=== PATIENT | male | born 1990 | race Caucasian/White ===

== ENCOUNTER 2022-09-02 21:13 | Emergency (ER) | payer OTHER, SELFPAY ==
--- NOTE | ~2022-09-02 | CT_ITS ---
EXAMINATION: CT brain wo con DATE: 09/02/2022 22:30 INDICATION: Altered mental status . TECHNIQUE: Computed tomography (CT) of the head was performed without intravenous contrast. The mA wa s adjusted according to patient size. Iterative reconstruction technique was employed. The dose-lengt h product was 605.33 mGy-cm. COMPARISON: None. FINDINGS: No acute intracranial hemorrhage or extra-axial fluid collection. No hydrocephalus, mass, or herniation. No acute ischemic infarct. Unremarkable dural venous sinus attenuation. No acute osseous abnormality. The aerated spaces are clear. IMPRESSION: No acute intracranial process. Reviewed, dictated and finalized at location K.
[2022-09-02 21:25] VITALS: BP 186/106; PULSE 114; RESP 14; O2SAT 95
[2022-09-02] MEDS: LORazepam INJ (*CRX) 2 MG/ML VIAL IM (21:42)
[2022-09-02] MEDS: HALOPERIDOL LACTATE 5 MG/ML VIAL IM (21:43)
--- NOTE | 2022-09-02 21:52 | PC.NURSE ---
patient arrived to er triage with his girlfriend. patient refused to enter building, instead sat in floyer and was yelling and singing loudly. patient threw his water bottle against the wall and yelled This is how I will get my power . patient dianne got into a wheelchair and was using it to wheel himself into the windows. patient continued to yell and maine his wheelchair into the windows until approached by several staff members and security at which time he stated I will be compliant so you cant send me into space
--- NOTE | 2022-09-02 21:58 | ED.PSYCH ---
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 Patient states he has felt disoriented and agitated for the past several days. He believes he fell and struck his head 2 days ago. He is not sure if he lost consciousness. He denied hallucinations to me, though admitted auditory and visual hallucinations to nursing staff. He denies suicidal or homicidal ideations to both me and nursing staff Related Data Allergies Allergy/AdvReac Type Severity Reaction Status Date / Time No Known Allergies Allergy Verified 09/02/22 21:33 Review of Systems Review of Systems: CONSTITUTIONAL: Denies fever, chills, or sweats. CARDIOVASCULAR: Denies chest pain, palpitations, or edema. RESPIRATORY: Denies cough or dyspnea. GASTROINTESTINAL: Denies abdominal pain, nausea, vomiting, or diarrhea. GENITOURINARY: Denies dysuria or hematuria. SKIN: Denies rash or itching. MUSCULOSKELETAL: Denies back pain, joint pain, or myalgia. NEUROLOGIC: Headache denies numbness, dizziness, or weakness. PSYCHIATRIC: Denies suicidal or homicidal ideations. Complains of auditory and visual hallucinations PMFSH Social History Social History (Updated 09/02/22 @ 22:02 by Filemon Mccray MD) Smoking status: Former smoker Alcohol intake: current Alcohol use details: Last reported drink 3 weeks ago Substance use type: does not use Exam Narrative: GENERAL: Well-developed, well-nourished, appears anxious, rapidly pacing in the room, HEAD: Normocephalic, atraumatic. EYES: PERRLA and EOMI. left eye strabismus ENT: Nares clear, no rhinorrhea or epistaxis. Mucous membranes moist. Oropharynx without tonsillar hypertrophy exudate or other lesions. CHEST: Clear to auscultation. No respiratory distress. No wheezes rales or rhonchi HEART: Tachycardic with regular rhythm. No murmur heard. Normal peripheral pulses. ABDOMEN: Soft, nontender, nondistended, normal active bowel sounds. EXTREMITIES: Normal range of motion. No edema. SKIN: Warm, dry, no rash. NEURO: No focal deficits. Alert and oriented x3. PSYCH: Anxious and manic affect though demonstrates forward and linear thinking Course Course Emergency Course: 23:30 - The patient is medically cleared for psychiatry evaluation. CT head negative for intracranial hemorrhage or skull fracture. White blood cell count elevated to 18, though I suspect this is due due to stress response. 02:30 - The patient was evaluated by crisis counselor Tita. The patient has previously contacted [facility] for psychiatric evaluation and has been accepted. A safety plan was drawn among the patient, his significant other and crisis counselor Tita. The patient in my opinion does not pose a threat to himself or to others. Will discharge. Vital Signs Vital signs: Vital Signs Pulse Rate 114 H 09/02/22 21:25 Respiratory Rate 14 09/02/22 21:25 Blood Pressure 186/106 H 09/02/22 21:25 Pulse Oximetry 95 09/02/22 21:25 Pulse Rate 88 09/03/22 02:45 Respiratory Rate 15 09/03/22 02:45 Blood Pressure 133/90 09/03/22 02:45 Pulse Oximetry 100 09/03/22 02:45 MDM - Psych MDM Narrative Medical decision making narrative: Plan: Labs, imaging, chemical sedation, psychiatric evaluation, reassess Differential Diagnosis Differential diagnosis: Likely acute psychosis, bipolar disorder, acute anxiety and other (Faye, drug/alcohol intoxication, metabolic abnormality, intracranial hemorrhage, skull fracture, other) Lab Data 09/02/22 21:49 09/02/22 21:49 Labs: Lab Results 09/02/22 09/02/22 Range/Units 21:49 22:05 WBC 18.3 H (4.5-10.0) K/mm3 RBC 5.12 (4.6-6
[2022-09-02 22:01] LABS: Basophils Absolute Auto 0.2 K/mm3 (0.0-0.1); Basophils Percent Auto 0.8 % (0.2-1.2); Eosinophils Percent Auto 5.3 % (0-4.4); Hematocrit 46.1 % (42.0-52.0); Hemoglobin 15.5 g/dL (14.0-18.0); Immature Granulocyte Absolute 0.06 K/mm3 (0.00-0.031); Immature Granulocyte Percent A 0.3 % (0-0.5); Lymphocytes Absolute Auto 4.66 K/mm3 (0.9-3.2); Lymphocytes Percent Auto 25.5 % (18.3-44.2); Mean Corpuscular HGB Conc 33.6 g/dl (32-36); Mean Corpuscular Hemoglobin 30.3 pg (26-34); Mean Platelet Volume 11.7 fl (7.4-10.4); Monocytes Absolute Auto 1.4 K/mm3 (0.1-0.6); Monocytes Percent Auto 7.4 % (2.6-8.5); Neutrophils Absolute Auto 11.1 K/mm3 (1.3-6.7); Neutrophils Percent Auto 60.7 % (45.5-73.1); Platelet Count Result 198 k/mm3 (150-375); Red Blood Count 5.12 M/mm3 (4.6-6.20); Red Cell Distribution Width 13.2 % (11.5-14.5); White Blood Count 18.3 K/mm3 (4.5-10.0)
[2022-09-02 22:11] LABS: Acetaminophen < 10 ug/mL (10-30); Ethanol < 10 mg/dL (<10); Salicylate 1.3 mg/dL (2-20)
[2022-09-02 22:13] LABS: Alanine Aminotransferase 53 U/L (6-50); Albumin Level 4.7 g/dL (3.5-5.1); Alkaline Phosphatase 113 U/L (38-126); Anion Gap 8 mmol/L (8-16); Aspartate Amino Transferase 44 U/L (17-59); Blood Urea Nitrogen 14 mg/dL (9-20); Calcium 9.2 mg/dL (8.4-10.2); Carbon Dioxide 26 mmol/L (22-30); Chloride 103 mmol/L (98-107); Estimated Glomerular Filt Rate > 60; Glucose 108 mg/dL (65-110); Potassium 3.6 mmol/L (3.4-5.0); Sodium 137 mmol/L (137-145)
[2022-09-02 22:14] LABS: Appearance Urine Clear (Clear); Bilirubin Urine Negative (Negative); Blood Urine Negative (Negative); Color Urine Yellow (Yellow); Glucose Urine UA Negative (Negative); Ketones Urine Negative (Negative); Leukocyte Esterase Ur Negative LEU/UL (Negative); Nitrate Urine Negative (Negative); Protein Urine Negative (Negative); Specific Grav Ur 1.007 (1.001-1.035); Urobilinogen Urine 0.2 mg/dL (<2.0)
[2022-09-02 22:16] LABS: Add Urine Microscopic? NO
[2022-09-02 22:18] LABS: Magnesium 1.9 mg/dL (1.6-2.3)
[2022-09-02 22:30] LABS: Amphetamine Screen Urine Negative (Negative); Barbiturate Screen Urine Negative (Negative); Benzodiazepines Screen Urine Negative (Negative); Cannabinoid Screen Urine Negative (Negative); Cocaine Screen Urine Negative (Negative); Methadone Screen Urine Negative (Negative); Opiate Screen Urine Negative (Negative); Phencyclidine Screen Urine Negative (Negative)
[2022-09-03 02:45] VITALS: BP 133/90; PULSE 88; RESP 15; O2SAT 100
== END 2022-09-03 02:54 | disposition home or self-care (01) ==
PROVIDERS: Emergency Provider Preventive Medicine Aerospace Medicine
DX: R44.1 Visual hallucinations (principal); R44.0 Auditory hallucinations; Z87.891 Personal history of nicotine dependence
CPT/HCPCS: 36415; 70450; 80053; 80307; 81003; 83735; 84443; 85025; 96372; 99284; J1630; J2060

== ENCOUNTER 2022-09-06 00:47 | Emergency (ER) | payer OTHER, SELFPAY ==
[2022-09-06] VITALS (15 sets, daily range): BP systolic 124–144; BP diastolic 69–94; PULSE 72–80; RESP 10–20; TEMP 36.2; O2SAT 96–100
--- NOTE | ~2022-09-06 | XR_ITS ---
EXAMINATION: XR chest 2V DATE: 09/06/2022 01:38 INDICATION: Chest pain. TECHNIQUE: Frontal and lateral views of the chest were obtained. COMPARISON: None. FINDINGS: The chest demonstrates clear lungs without pneumonia, pleural effusion, or pneumothorax. Th e heart size is normal. IMPRESSION: 1. No acute cardiopulmonary disease. Reviewed, dictated and finalized at location A.
--- NOTE | 2022-09-06 00:51 | ECG_ITS ---
Measurements Intervals [place] Rate: 71 P: 32 [place]: 162 QRS: -11 QRSD: 94 T: -3 QT: 372 QTc: 405 Interpretive Statements SINUS RHYTHM BORDERLINE T WAVE ABNORMALITY- INFERIOR LEADS BORDERLINE ECG NO PREVIOUS ECG AVAILABLE FOR COMPARISON Electronically Signed On 09-06-2022 7:04:35 CDT by Jean Claude Gee D.O.
--- NOTE | 2022-09-06 01:04 | ED.ANXIETY ---
HPI - Anxiety General Chief Complaint: Anxiety Stated Complaint: CP Time Seen by Provider: 09/06/22 00:54 History of Present Illness HPI narrative: 32-year-old male presented the ED for evaluation of short lasting chest pain. Patient states earlier in the evening he had onset of some left-sided chest pressure that lasted just a few seconds to a minute. Patient has no prior history of heart disease. Patient states he was having some anxiety during this. Patient reports he has had a stressful day. Patient states he was here a few days ago and is requesting Haldol and Ativan Related Data Allergies Allergy/AdvReac Type Severity Reaction Status Date / Time No Known Allergies Allergy Verified 09/02/22 21:33 Review of Systems Review of Systems: All systems reviewed & are unremarkable except as noted in HPI and below PMFSH Social History Social History (Updated 09/02/22 @ 22:02 by Filemon Mccray MD) Smoking status: Former smoker Alcohol intake: current Alcohol use details: Last reported drink 3 weeks ago Substance use type: does not use Exam Narrative: APPEARANCE: Well appearing, no pain, no distress, well-nourished. HEAD: normocephalic, atraumatic. EYES: PERRLA/EOMI, conjunctivae clear. NOSE: Normal no drainage NECK: Supple. No adenopathy, no masses. RESPIRATORY: Airway patent, respirations nonlabored. Clear to auscultation bilaterally, no rales, rhonchi, wheezing. CARDIOVASCULAR: Regular rate and rhythm without murmurs rubs or gallops. ABDOMINAL: Soft, nontender, nondistended, normal bowel sounds MUSCULOSKELETAL: Moves all extremities. Strength/ROM intact, No edema, No calf tenderness. NEURO: Alert. Cranial nerves II through XII intact. Grossly intact SKIN: Warm, dry. Normal Color Course Course Emergency Course: 32-year-old male presented to the ED for evaluation of left-sided chest pain that was short lasting. Patient's EKG showed normal sinus rhythm with no evidence of acute STEMI. Patient's x-ray shows no acute cardiopulmonary abnormality. Patient's troponin was negative. Patient has no chest pain and only had short lasting chest pain. Low concern for ACS. Patient states he does not want to stay for a second troponin. I feel patient is low risk and does not need a repeat troponin. Patient was encouraged close follow-up with his primary care physician. All questions and concerns were addressed. Vital Signs Vital signs: Vital Signs Temperature 97.2 F L 09/06/22 00:49 Pulse Rate 72 09/06/22 00:49 Respiratory Rate 18 09/06/22 00:49 Blood Pressure 144/79 H 09/06/22 00:49 Pulse Oximetry 100 09/06/22 00:49 Oxygen Delivery Room Air 09/06/22 00:49 Temperature 97.2 F L 09/06/22 00:49 Pulse Rate 72 09/06/22 00:49 Respiratory Rate 18 09/06/22 00:49 Blood Pressure 144/79 H 09/06/22 00:49 Pulse Oximetry 100 09/06/22 00:49 Oxygen Delivery Room Air 09/06/22 00:49 MDM - Anxiety Differential Diagnosis Differential diagnosis: Likely panic disorder and acute anxiety Lab Data Attestation: I reviewed the patient's lab results. 09/06/22 01:00 09/06/22 01:00 Labs: Lab Results 09/06/22 Range/Units 01:00 WBC 13.2 H (4.5-10.0) K/mm3 RBC 5.04 (4.6-6.20) M/mm3 Hgb 15.2 (14.0-18.0) g/dL Hct 45.6 (42.0-52.0) % MCV 90.5 (80-100) fl MCH 30.2 (26-34) pg MCHC 33.3 (32-36) g/dl RDW 13.2 (11.5-14.5) % Plt Count 168 (150-375) k/mm3 MPV 11.6 H (7.4-10.4) fl Immature Gran % (Auto) 0.4 (0-0.5) % Neut % (Auto) 52.0 (45.5-73.1) % Lymph % (Auto) 30.3 (18.3-44.2) % [place] % (Auto) 10.6 H (2.6-8.5) % Eos % (Auto) 5.9 H (0-4.4) % Baso % (Auto) 0.8 (0.2-1.2) % Lymph # (Auto) 3.99 H (0.9-3.2) K/mm3 [place] # (Auto) 1.4 H (0.1-0.6) K/mm3 Eos # (Auto) 0.8 H (0-0.3) K/mm3 Baso # (Auto) 0.1 (0.0-0.1) K/mm3 Abs Immat Gran (auto) 0.05 H (0.00-0.031) K/mm3 Absolute Neuts (auto) 6.8 H (1
[2022-09-06 01:06] LABS: Basophils Absolute Auto 0.1 K/mm3 (0.0-0.1); Basophils Percent Auto 0.8 % (0.2-1.2); Eosinophils Absolute Auto 0.8 K/mm3 (0-0.3); Eosinophils Percent Auto 5.9 % (0-4.4); Hematocrit 45.6 % (42.0-52.0); Hemoglobin 15.2 g/dL (14.0-18.0); Immature Granulocyte Absolute 0.05 K/mm3 (0.00-0.031); Immature Granulocyte Percent A 0.4 % (0-0.5); Lymphocytes Absolute Auto 3.99 K/mm3 (0.9-3.2); Lymphocytes Percent Auto 30.3 % (18.3-44.2); Mean Corpuscular HGB Conc 33.3 g/dl (32-36); Mean Corpuscular Hemoglobin 30.2 pg (26-34); Mean Corpuscular Volume 90.5 fl (80-100); Mean Platelet Volume 11.6 fl (7.4-10.4); Monocytes Absolute Auto 1.4 K/mm3 (0.1-0.6); Monocytes Percent Auto 10.6 % (2.6-8.5); Neutrophils Absolute Auto 6.8 K/mm3 (1.3-6.7); Platelet Count Result 168 k/mm3 (150-375); Red Blood Count 5.04 M/mm3 (4.6-6.20); Red Cell Distribution Width 13.2 % (11.5-14.5); White Blood Count 13.2 K/mm3 (4.5-10.0)
[2022-09-06 01:16] LABS: Alanine Aminotransferase 52 U/L (6-50); Albumin Level 4.4 g/dL (3.5-5.1); Alkaline Phosphatase 123 U/L (38-126); Anion Gap 6 mmol/L (8-16); Aspartate Amino Transferase 40 U/L (17-59); Blood Urea Nitrogen 11 mg/dL (9-20); Calcium 9.5 mg/dL (8.4-10.2); Carbon Dioxide 28 mmol/L (22-30); Chloride 103 mmol/L (98-107); Estimated Glomerular Filt Rate > 60; Glucose 94 mg/dL (65-110); Lipase 80 U/L (23-300); Potassium 4.1 mmol/L (3.4-5.0); Sodium 137 mmol/L (137-145)
[2022-09-06 01:23] LABS: INR 0.9; Prothrombin Time 12.8 Seconds (11.1-14.7)
[2022-09-06 01:28] LABS: Troponin I < 0.012 ng/mL (0.000-0.034)
--- NOTE | 2022-09-06 02:58 | PC.NURSE ---
patient used phone to call [facility]
--- NOTE | 2022-09-06 02:59 | PC.NURSE ---
report called to [facility] and spoke with rajani, patient will be discharged, workup negative for cardia issues
== END 2022-09-06 05:28 ==
PROVIDERS: Emergency Provider Emergency Medicine
DX: R07.89 Other chest pain (principal); Z87.891 Personal history of nicotine dependence
CPT/HCPCS: 36415; 71046; 80053; 83690; 84484; 85025; 85610; 85730; 93005; 99284